=== PATIENT | female | born 1985 | race Caucasian/White ===

== ENCOUNTER 2018-08-04 17:30 | Emergency (ER) | payer OTHER ==
[~2018-08-04] VITALS: Ht 154.9 cm; Wt 114.3 kg
[~2018-08-04 17:30] MED LIST: PREN-385 PO; PREN1KIT74 PO
[2018-08-04 17:35] VITALS: BP 143/76
--- NOTE | 2018-08-04 17:41 | NUR ---
pt amb to bed 2
--- NOTE | 2018-08-04 17:42 | NUR ---
32 Y FEMALE BIB SELF C/O RLQ PAIN EXACERBATED BY BREATHING X 1 DAY. DENIES INJURY, -CP/COUGH, -N/V/D, -FEVER, -DYSURIA. PAIN 7/10 ACHING. PT STATES SHE ATE LUNCH TODAY WITHOUT SYMPTOMS. VSS AT THIS TIME. AA0X4. BED IS DOWN, LOCKED, BED RAIL X 1, ERMD NOTIFIED. PMH: GESTATIONAL DM
--- NOTE | 2018-08-04 17:43 | NUR ---
ABDOMEN IS SOFT AND ROUND. BOWEL SOUNDS IN ALL 4 QUADRANTS. LAST BM TODAY. NO CONSTIPATION OR DIARRHEA.
--- NOTE | 2018-08-04 18:15 | NUR ---
DR MORALES AT BEDSIDE
[2018-08-04 18:31] LABS: BASOPHILS # (AUTO) 0.1 K/uL (0.00-0.22); BASOPHILS % (AUTO) 0.4 % (0.0-2.0); EOSINOPHILS # (AUTO) 0.2 K/uL (0-0.4); EOSINOPHILS % (AUTO) 1.7 % (0.0-4.0); HEMATOCRIT 40.4 % (36-48); HEMOGLOBIN 13.4 g/dL (12.0-16.0); LYMPHOCYTES # (AUTO) 4.5 K/uL (2.5-16.5); LYMPHOCYTES % (AUTO) 31.7 % (20.5-51.1); MEAN CORPUSCULAR HEMOGLOBIN 30 pg (27-31); MEAN CORPUSCULAR HGB CONC 33 g/dL (33-37); MEAN CORPUSCULAR VOLUME 90.3 fL (80-94); MONOCYTES # (AUTO) 0.9 K/uL (0.8-1.0); MONOCYTES % (AUTO) 6.2 % (1.7-9.3); NEUTROPHILS # (AUTO) 8.6 K/uL (1.8-7.7); PLATELET COUNT (AUTO) 227 K/uL (140-450); RED BLOOD CELL COUNT(AUTO) 4.47 MIL/uL (4.20-5.40); RED CELL DISTRIBUTION WIDTH 12.8 % (11.6-13.7); WHITE BLOOD COUNT (AUTO) 14.3 K/uL (4.8-10.8)
[2018-08-04 18:36] LABS: APPEARANCE,URINE CLEAR (CLEAR); BILIRUBIN,URINE NEGATIVE (NEGATIVE); BLOOD, URINE TRACE-I (NEGATIVE); COLOR,URINE YELLOW (YELLOW); LEUKOCYTE ESTERASE ,URINE NEGATIVE (NEGATIVE); NITRITE, URINE NEGATIVE (NEGATIVE); UGLUCOSE NEGATIVE (NEGATIVE)
[2018-08-04 18:40] LABS: ANION GAP 10.3 (8-16); CARBON DIOXIDE 27.7 mmol/L (21-32); CREATININE 0.7 mg/dL (0.6-1.3)
[2018-08-04 18:46] LABS: ALBUMIN 3.7 g/dL (3.4-5.0); TOTAL BILIRUBIN 0.3 mg/dL (0.0-1.0)
[2018-08-04] MEDS ORDERED: KETOROLAC 30 MG/ML VIAL IVP ONE (19:30)
--- NOTE | 2018-08-04 19:30 | NUR ---
VSS AT THIS TIME, AA0X4, PT SITTING UPRIGHT IN BED
--- NOTE | 2018-08-04 19:39 | NUR ---
DR FLANAGAN AT BEDSIDE.
[2018-08-04 20:58] VITALS: BP 138/72
--- NOTE | 2018-08-04 21:00 | NUR ---
Patient discharged with v/s stable. Written and verbal after care instructions given and explained. Patient alert, oriented and verbalized understanding of instructions. Ambulatory with steady gait. All questions addressed prior to discharge. ID band removed. Patient advised to follow up with PMD. Rx of NORCO, NAPROSYN, OMEPRAZOLE given. Patient educated on indication of medication including possible reaction and side effects. Opportunity to ask questions provided and answered.
== END 2018-08-04 21:00 | disposition home or self-care (01) ==
LOC: MED 17:30
DX: K80.20 Calculus of gallbladder without cholecystitis without obstruction (principal); Z79.899 Other long term (current) drug therapy
CPT/HCPCS: 36415; 76705; 80053; 81003; 81025; 83690; 84703; 85025; 96374; 99284; J1885; Q0092; 81002

== ENCOUNTER 2018-11-08 15:17 | Emergency (ER) | payer OTHER ==
[~2018-11-08] VITALS: Ht 157.5 cm; Wt 114.0 kg
[2018-11-08 15:18] VITALS: BP 159/88
--- NOTE | 2018-11-08 15:30 | NUR ---
Patient ambulated to bed 12. RN evaluating patient at bedside.
--- NOTE | 2018-11-08 15:32 | NUR ---
33/F BIB SELF C/O NAUSEA, DIARRHEA & PAINFUL URINATION X YESTERDAY. PATIENT STATES PAIN OF 3/10 AT THIS TIME. PATIENT POSITIONED FOR COMFORT; HOB ELEVATED; BEDRAILS UP X1; BED DOWN. ER MD MADE AWARE OF PT STATUS.
--- NOTE | 2018-11-08 15:50 | NUR ---
DR AGUIRRE AT BEDSIDE EVALUATING PT
[2018-11-08 16:01] VITALS: BP 159/88
--- NOTE | 2018-11-08 16:01 | NUR ---
Patient discharged with v/s stable. Written and verbal after care instructions given and explained. Patient alert, oriented and verbalized understanding of instructions. Ambulatory with steady gait. All questions addressed prior to discharge. ID band removed. Patient advised to follow up with PMD. Rx of PYRIDIUM & MACROBID given. Patient educated on indication of medication including possible reaction and side effects. Opportunity to ask questions provided and answered.
== END 2018-11-08 16:01 | disposition home or self-care (01) ==
LOC: MED 15:17
DX: N39.0 Urinary tract infection, site not specified (principal); Z79.899 Other long term (current) drug therapy
CPT/HCPCS: 81002; 81025; 99283